=== PATIENT | female | born 1995 | race Caucasian/White ===

== ENCOUNTER 2017-07-15 07:42 | Emergency (ER) | payer OTHER ==
[~2017-07-15] VITALS: Ht 149.9 cm; Wt 63.5 kg
[2017-07-15] MEDS ORDERED: AMIT25TA9 PO (08:18)
--- NOTE | 2017-07-15 08:20 | ED Psychosocial ---
General Chief Complaint: General Problems/Pain Stated Complaint: PSYCH EVAL Nursing Triage Note: ARRIVED VIA AMB TO ROOM 08. COMPLAINS OF NOT BEING ABLE TO SLEEP FOR THE PAST 5-6 DAYS ONLY HAVING 6 HOURS OF SLEEP. Source: patient, family Exam Limitations: no limitations History of Present Illness Time seen by provider: 07:52 Initial Comments Patient was brought to the ER by her mother who is concerned about patient's insomnia. Patient lives in [place] with her boyfriend. Mom reports patient quit her job a week ago and called her stating she was having a "breakdown" and needed to come home. Patient flew home and has been staying with her mother for the past few days. She has difficulty sleeping and has only slept about 3 hours each of the past two nights. She denies any manic activities of thoughts. She denies suicidal or homicidal ideation. Mother appears more concerned than the patient. Patient states her boyfriend is very supportive and she feels safe with him. She had struggled with behavioral health issues and insomnia for many years and has been admitted to psychiatric treatment multiple times in the past. She has not been treated for depression or anxiety since age 19. She rarely drinks alcohol but she uses marijuana daily. She has not used since arriving in [place]. Patient states she has tried melatonin and Seroquel in the past without success. Allergies and Home Medications Allergies Coded Allergies: No Known Drug Allergies (Unverified , 07/15/17) Home Medications Amitriptyline HCl 25 Mg Tablet, 25 MG PO HS, #10 Prescribed by: SHARIFA SALAS on 07/15/17 0818 Constitutional: no symptoms reported EENTM: no symptoms reported Respiratory: no symptoms reported Cardiovascular: no symptoms reported Gastrointestinal: no symptoms reported Genitourinary: no symptoms reported : No Musculoskeletal: no symptoms reported Skin: no symptoms reported Psychiatric/Neurological: See HPI Past Xvlvmsl-Dovxzb-Dccxso Hx Patient Social History Alcohol Use: Occasionally Uses Recreational Drug Use: Yes Drug of Choice: Marijuana daily Recent Foreign Travel: No Contact w/Someone Who Travel: No Recent Infectious Disease Expo: No Recent Hopitalizations: No Surgeries History of Surgeries: Yes (Dental) Respiratory History of Respiratory Disorde: No Cardiovascular History of Cardiac Disorders: No Neurological History of Neurological Disord: No Reproductive System : No Last Menstrual Period: Jun 26, 2017 Genitourinary History of Genitourinary Disor: No Gastrointestinal History of Gastrointestinal Di: No Musculoskeletal History of Musculoskeletal Dis: No Endocrine History of Endocrine Disorders: No HEENT History of HEENT Disorders: No Cancer History of Cancer: No Psychosocial History of Psychiatric Problem: Yes (History of psychiatric admissions) Behavioral Health Disorders: ADD/ADHD, Sleep Difficulties, Anxiety, ODD, Bipolar, Depression Integumentary History of Skin or Integumenta: No Physical Exam Vital Signs Vital Sign - Last 12Hours 07/15/17 07:45 Temp 98.0 Pulse 106 Resp 18 B/P (MAP) 160/102 (121) Pulse Ox 98 Capillary Refill : Less Than 3 Seconds General Appearance: WD/WN, no apparent distress HEENT: PERRL/EOMI, normal ENT inspection, pharynx normal Neck: normal inspection Respiratory: lungs clear, normal breath sounds, no respiratory distress, no accessory muscle use Cardiovascular: regular rate, rhythm, no edema, no murmur Gastrointestinal: non tender, soft Extremities: normal inspection, no pedal edema Neurologic/Psychiatric: sizer hand II-XII nml as tested, no motor/sensory deficits, alert, normal mood/affect, oriented x 3 Appearance/Memory: appropriate appearance Behavior/Eye Contact: cooperative, good eye contact Thoughts/Hallucinations: no apparent hallucination Skin: normal color, warm/dry Progress/Results/Core Measures Results/Orders Vital Signs/I&O Blood Pressure Mean: 121 Progress Note : Progress Note Patient is not experiencing a psychiatric emergency by my interpretation nor does she personally believe she is facing psychiatric crisis. She is relatively resistant to any treatment or lifestyle modification I suggest. She states she might be willing to try Amitriptyline and/or Unisom. Departure Impression Impression: Primary Impression: Insomnia Qualified Codes: G47.00 - Insomnia, unspecified Disposition: HOME, SELF-CARE Condition: Stable Departure-Patient Inst. Decision time for Depature: 08:15 Referrals: NO,LOCAL PHYSICIAN (PCP/Family) Primary Care Physician Patient Instructions: Insomnia Add. Discharge Instructions: Try engaging in exertional exercise or some other type of exertional activity daily. Avoid stimulants such as caffeine. You may try Unisom and/or Amitriptyline as prescribed. Make sure you environment is conducive to sleep when you go to bed. Establish with a primary care provider and/or a behavioral health provider as soon as possible. Avoid use of other psychotropic substances such as marijuana until you discuss further with your doctor. All discharge instructions reviewed with patient and/or family. Voiced understanding. Scripts Amitriptyline HCl (Amitriptyline HCl) 25 Mg Tablet 25 MG PO HS, #10 TAB Prov: SHARIFA CARRILLO MD 07/15/17 SHARIFA CARRILLO MD Jul 15, 2017 08:20
[2017-07-15 08:21] VITALS: BP 160/102
== END 2017-07-15 08:21 | disposition home or self-care (01) ==
LOC: ER 07:46
DX: G47.00 Insomnia, unspecified (principal); F41.9 Anxiety disorder, unspecified; F31.9 Bipolar disorder, unspecified; F90.9 Attention-deficit hyperactivity disorder, unspecified type
CPT/HCPCS: 99281

== ENCOUNTER 2018-06-16 07:35 | Outpatient (CLI) | payer BC, MEDICAID, OTHER ==
[~2018-06-16] VITALS: Ht 149.9 cm; Wt 74.9 kg
[2018-06-16 07:23] VITALS: BP 122/77
[~2018-06-16 07:35] MED LIST: AMIT25TA9 PO
[2018-06-16 08:15] LABS: BILIRUBIN,URINE NEGATIVE (NEGATIVE); GLUCOSE, URINE (UA) NEGATIVE (NEGATIVE); KETONES,URINE NEGATIVE (NEGATIVE); LEUKOCYTE ESTERASE ,URINE 1+ (NEGATIVE); NITRITE,URINE NEGATIVE (NEGATIVE); PH,URINE 7 (5-9); PROTEIN,URINE NEGATIVE (NEGATIVE); UROBILINOGEN,URINE NORMAL (NORMAL)
[2018-06-16 08:16] LABS: BACTERIA,URINE TRACE /HPF; CLARITY,URINE CLEAR; COLOR,URINE YELLOW; WBC,URINE 0-2 /HPF
[2018-06-16 08:21] VITALS: BP 111/71
[2018-06-16 08:51] VITALS: BP 111/70
[2018-06-16 09:21] VITALS: BP 110/60
[2018-06-16] MEDS ORDERED: PREN1TAB79 PO (09:28)
[2018-06-16] MEDS ORDERED: FLU QUADRIvalent (5+ YOA) 2018-2019 (AFLURIA) 0.5 ML IM ONE (09:30)
[2018-06-16 10:07] VITALS: BP 110/60
== END 2018-06-16 10:07 | disposition home or self-care (01) ==
LOC: LDRP 07:35 → WSo 07:35
PROVIDERS: ATTEND Obstetrics & Gynecology
DX: O36.8130 Decreased fetal movements, third trimester, not applicable or unspecified (principal); Z3A.29 29 weeks gestation of pregnancy
CPT/HCPCS: 81000; 99214